=== PATIENT | male | born 1995 | race Caucasian/White ===

== ENCOUNTER 2017-02-21 02:13 | Emergency (ER) | payer OTHER ==
[2017-02-21 05:01] VITALS: BP 108/61
== END 2017-02-21 05:01 | disposition home or self-care (01) ==
LOC: ED 02:13
DX: S93.402A Sprain of unspecified ligament of left ankle, initial encounter (principal); F15.10 Other stimulant abuse, uncomplicated; X58.XXXA Exposure to other specified factors, initial encounter; Y93.89 Activity, other specified; Y99.8 Other external cause status; Y92.89 Other specified places as the place of occurrence of the external cause
CPT/HCPCS: Q0092

== ENCOUNTER 2017-07-21 22:18 | Emergency (ER) | payer OTHER ==
[~2017-07-21] VITALS: Ht 182.9 cm; Wt 100.2 kg
[2017-07-22 01:13] VITALS: BP 136/74
== END 2017-07-22 01:13 | disposition home or self-care (01) ==
LOC: ED 22:18
DX: S00.511A Abrasion of lip, initial encounter (principal); F17.200 Nicotine dependence, unspecified, uncomplicated; Z71.6 Tobacco abuse counseling; X58.XXXA Exposure to other specified factors, initial encounter; Y93.89 Activity, other specified; Y92.89 Other specified places as the place of occurrence of the external cause; Y99.8 Other external cause status
CPT/HCPCS: 99406

== ENCOUNTER 2018-06-19 15:44 | Emergency (ER) | payer OTHER ==
[~2018-06-19] VITALS: Ht 180.3 cm; Wt 108.0 kg
[2018-06-19 18:42] VITALS: BP 138/87
== END 2018-06-19 18:42 | disposition home or self-care (01) ==
LOC: ED 15:44
DX: S61.012A Laceration without foreign body of left thumb without damage to nail, initial encounter (principal); F15.90 Other stimulant use, unspecified, uncomplicated; F12.90 Cannabis use, unspecified, uncomplicated; W26.0XXA Contact with knife, initial encounter; Y93.89 Activity, other specified; Y92.89 Other specified places as the place of occurrence of the external cause; Y99.8 Other external cause status
CPT/HCPCS: 90715; J2001

== ENCOUNTER 2020-05-26 23:17 | Emergency (ER) | payer OTHER ==
[~2020-05-26] VITALS: Ht 185.4 cm; Wt 81.6 kg
[2020-05-26 23:30] VITALS: Ht 185.4 cm; Wt 81.6 kg
[2020-05-27 06:09] VITALS: BP 121/74
== END 2020-05-27 06:09 | disposition other institution (70) ==
LOC: ED 23:17
DX: Z02.89 Encounter for other administrative examinations (principal)

== ENCOUNTER 2020-10-13 13:37 | Emergency (ER) | payer SELFPAY ==
[~2020-10-13] VITALS: Ht 180.3 cm; Wt 91.6 kg
[2020-10-13 13:45] VITALS: Ht 180.3 cm; Wt 91.6 kg
[2020-10-13 15:36] VITALS: BP 121/82
== END 2020-10-13 15:36 | disposition home or self-care (01) ==
LOC: ED 13:37
DX: M25.511 Pain in right shoulder (principal); W22.8XXA Striking against or struck by other objects, initial encounter; Y93.89 Activity, other specified; Y92.89 Other specified places as the place of occurrence of the external cause; Y99.8 Other external cause status